=== PATIENT | female | born 1985 | race Caucasian/White ===

== ENCOUNTER 2018-02-04 10:13 | Outpatient (CLI) | payer OTHER ==
--- NOTE | 2018-02-04 13:10 | Ultrasound Report ---
Reason: PELVIC PAIN Procedure Date: 02/04/2018 Accession Number: [id number] / [id number] Procedure: US - Transvaginal CPT Code: FULL RESULT: EXAM: PELVIC ULTRASOUND EXAM DATE: 02/04/2018 11:23 AM. CLINICAL HISTORY: Pelvic pain COMPARISON: None. TECHNIQUE: Transvaginal sonographic assessment of the pelvis utilizing grayscale, color-flow, and spectral Doppler techniques. FINDINGS: Uterus: Surgically absent. Right Ovary: 4.6 x 2.5 x 2.3 cm, volume 13.8 cc. Multiple small follicles. Dominant mildly complex cystic structure with surrounding vascularity, which may reflect a corpus luteum measuring approximately 18 mm. Normal echotexture and blood flow. Left Ovary: 3.3 x 2 x 2 cm, volume 6.9 cc. Multiple small follicles. Normal echotexture and blood flow. Free Fluid: Small amount. Other: None. IMPRESSION: 1. Prior hysterectomy. 2. Mildly complex cystic structure with surrounding vascularity of the right ovary measuring 18 mm, which may reflect corpus luteum. Other small follicles also noted bilaterally. 3. Small amount of free fluid within the pelvis. [facility]
== END 2018-02-04 10:14 | disposition home or self-care (01) ==
LOC: DI 10:13
DX: R10.9 Unspecified abdominal pain (principal); N83.201 Unspecified ovarian cyst, right side
CPT/HCPCS: 76830